=== PATIENT | male | born 1995 | race Caucasian/White ===

== ENCOUNTER 2018-02-20 10:21 | Emergency (ER) | payer MEDICAID ==
[~2018-02-20] VITALS: Ht 172.7 cm; Wt 72.6 kg
[2018-02-20 12:12] VITALS: BP 138/68
== END 2018-02-20 12:12 | disposition home or self-care (01) ==
LOC: ED 10:21
DX: S09.8XXA Other specified injuries of head, initial encounter (principal); W07.XXXA Fall from chair, initial encounter; Y93.89 Activity, other specified; Y92.89 Other specified places as the place of occurrence of the external cause; Y99.8 Other external cause status

== ENCOUNTER 2019-04-25 15:27 | Emergency (ER) | payer SELFPAY ==
[~2019-04-25] VITALS: Ht 165.1 cm; Wt 71.7 kg
[2019-04-25 15:33] VITALS: BP 166/92; Ht 165.1 cm; Wt 71.7 kg
== END 2019-04-25 17:04 | disposition home or self-care (01) ==
LOC: ED 15:27
DX: L25.9 Unspecified contact dermatitis, unspecified cause (principal)